=== PATIENT | male | born 1990 | race Two or more races ===

== ENCOUNTER 2017-02-24 01:01 | Emergency (ER) | payer SELFPAY ==
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
[2017-02-24 01:13] VITALS: TEMP 98.4
[2017-02-24 07:12] VITALS: BP 125/75; PULSE 77; RESP 16; O2SAT 100
== END 2017-02-24 07:51 | disposition home or self-care (01) ==
LOC: EDBD 01:01
DX: F10.920 Alcohol use, unspecified with intoxication, uncomplicated (principal)